=== PATIENT | female | born 1955 | race Caucasian/White ===

== ENCOUNTER 2022-01-09 15:49 | Emergency (ER) | payer MEDICARE, MEDICAID, SELFPAY ==
[2022-01-09 16:22] VITALS: BP 141/61; PULSE 81; RESP 24; TEMP 37.1; O2SAT 97
--- NOTE | 2022-01-09 17:09 | ED.SOB ---
HPI - SOB/Dyspnea General Chief Complaint: Shortness of Breath/Dyspnea Stated Complaint: Need prescriptions Time Seen by Provider: 01/09/22 17:09 Source: patient, RN notes reviewed and old records reviewed Mode of arrival: ambulatory Limitations: no limitations History of Present Illness HPI Narrative: 66 year old female who present to [facility] accompanied by son with complaints of of being short of breath due to diagnosis of COPD and being out of her inhalers for the past week. Patient reports that is is traveling with her son and did not expect to be gone from home for this long. Patient is from [place]. Patient in room alone when provider entered room and is tearful, states her son has no patience and is upsetting her, patient states that she takes Xanax low dose prn for her nerves and is out of that too.Patient is slightly tachypneic with respirations 24 per minute, is able to speak in full sentences, SAO2 97% on room air with no accessory muscle use noted.lungs are decreased on auscultation. MD elicited complaint: shortness of breath (out of inhalers) Pertinent past history: COPD and other (tobacco use) Related Data Home Medications Medication Instructions Recorded Confirmed albuterol sulfate 90 mcg/actuation 90 mcg inhalation DIRECTED 01/09/22 01/09/22 aerosol inhaler (ProAir HFA) alprazolam 0.25 mg tablet 0.25 mg DIRECTED 01/09/22 01/09/22 clopidogrel 75 mg tablet 75 mg DIRECTED 01/09/22 01/09/22 rosuvastatin 20 mg tablet 20 mg DIRECTED 01/09/22 01/09/22 tiotropium bromide 18 mcg capsule 18 mcg inhalation DIRECTED 01/09/22 01/09/22 with inhalation device (Spiriva with HandiHaler) Allergies Allergy/AdvReac Type Severity Reaction Status Date / Time aspirin Allergy Severe Swelling Verified 01/09/22 16:21 of Lip/Tongue/Throat Penicillins Allergy Severe Swelling Verified 01/09/22 16:21 of Lip/Tongue/Throat procaine [From Novocain] Allergy Severe Swelling Verified 01/09/22 16:21 of Lip/Tongue/Throat Review of Systems Review of Systems: CONSTITUTIONAL: Denies fever, chills, or sweats. EYES: Denies visual changes, redness, or discharge. ENT: Denies rhinorrhea, congestion, sore throat, or otalgia. CARDIOVASCULAR: Denies chest pain, palpitations, or edema. RESPIRATORY: Positive for dry cough and dyspnea especially with activity with some tightness with her breathing, no inhaler for one week duration. GASTROINTESTINAL: Denies abdominal pain, nausea, vomiting, or diarrhea. GENITOURINARY: Denies dysuria or hematuria. SKIN: Denies rash or itching. MUSCULOSKELETAL: Denies back pain, joint pain, or myalgia. NEUROLOGIC: Denies headache, numbness, or weakness. PSYCHIATRIC: positive for anxiety or depression. [facility] Past Medical History Medical History (Updated 01/12/22 @ 13:01 by Shae Ibarra NP) Acute anxiety COPD (chronic obstructive pulmonary disease) CVA (cerebral vascular accident) Heart murmur Vertigo Surgical History Surgical History (Updated 01/12/22 @ 12:59 by Shae Ibarra NP) History of section x2 Social History Social History (Updated 01/12/22 @ 12:58 by Shae Ibarra NP) Smoking packs per day: 0.5 Smoking cigarettes per day: 10.0 Years smoked: 43 Smoking pack-years: 21.50 Smoking status: Current every day smoker Tobacco type: cigarettes Alcohol intake: unknown Substance use: unknown Living arrangements: with family Gender identity (if verbalized by the patient): Female Comments At time of signature agree with nursing documentation ofmedical, surgical, social and family history,There is no relevant family history pertinent to presenting complaint. Exam Narrative: GENERAL:Chronic ill appearing, fair-nourished, and in no acute distress. HEAD: Normocephalic, atraumatic. EYES: PERRLA and EOMI. ENT: Nares clear, no rhinorrhea or epistaxis. Mucous membranes moist.TM's normal with good light reflex,
== END 2022-01-09 17:44 | disposition home or self-care (01) ==
PROVIDERS: Emergency Provider Registered Nurse
DX: J44.1 Chronic obstructive pulmonary disease with (acute) exacerbation (principal); F41.9 Anxiety disorder, unspecified; Z86.73 Personal history of transient ischemic attack (TIA), and cerebral infarction without residual deficits; R01.1 Cardiac murmur, unspecified
CPT/HCPCS: 99211; G0463